=== PATIENT | female | born 1985 | race African-American/Black ===

== ENCOUNTER 2020-02-29 11:00 | Emergency (ER) | payer BC ==
[2020-02-29 11:17] VITALS: TEMP 99.2; BMI 29.9
[2020-02-29 11:51] LABS: BASO % 0.4 % (0-2.0); EOS % 1.5 % (0-4.5); HEMATOCRIT 35.1 % (32.4-45.2); HEMOGLOBIN 11.6 GM/dl (10.7-15.3); LYMPH % 39.2 % (8-40); MCH 23.3 pg (25.7-33.7); MCHC 33.1 g/dl (32.0-36.0); MEAN CELL VOLUME 70.3 fl (80-96); MEAN PLT VOLUME 8.2 fl (7.5-11.1); MONO % 10.2 % (3.8-10.2); NEUT % 48.7 % (42.8-82.8); PLATELET COUNT 419 K/MM3 (134-434); RDW 13.4 % (11.6-15.6); WHITE BLOOD COUNT 8.6 K/mm3 (4.0-10.8)
--- NOTE | 2020-02-29 11:57 | PDOC ---
History of Present Illness - General Chief Complaint: Nausea/Vomiting Stated Complaint: NAUSEA AND VOMITING Time Seen by Provider: 02/29/20 11:11 History Source: Patient Exam Limitations: No Limitations - History of Present Illness Initial Comments: 02/29/20 11:52 34 yo F diagnosed with goiter ~1 month ago p/w nausea and intermittent vomiting x5 days, ~2-3 episodes/day. Denies abdominal pain or changes in bowel habits. Denies cough, CP, SOB or urinary complaints. Reports heat intolerance and ~8 pound unintentional weight loss over the past few months. Was told to f/u with a n syrup blender but has not been able to make an appointment as of yet. Deneis fevers or sick contacts. Was seen by her PMD and urgent care and lab work was done which was notable for low TSH. No other complaints. Past History - Medical History Allergies/Adverse Reactions: Allergies Allergy/AdvReac Type Severity Reaction Status Date / Time Penicillins Allergy Intermediate Itching Verified 02/29/20 11:04 pepper (genus Capsicum) Allergy Intermediate Itching Verified 02/29/20 11:05 Home Medications: Ambulatory Orders Methimazole 10 mg PO BID #28 tablet 02/29/20 Propranolol HCl 10 mg PO BID #28 tablet 02/29/20 COPD: No Other medical history: GOITER,MIGRAINES,C7-T1 BULGING DISC - Psycho-Social/Smoking History Smoking History: Current every day smoker Number of Cigarettes Smoked Daily: 5 Information on smoking cessation initiated: No - Substance Abuse Hx (Audit-C & DAST Scrn) How often the patient has a drink containing alcohol: Never Score: In Men: 4 or > Positive; In Women: 3 or > Positive: 0 Screen Result (Pos requires Nsg. Audit-10AR): Negative In the last yr the pt used illegal drug/Rx for NonMed reason: No Score: Yes response is considered Positive: 0 Screen Result (Positive result requires Nsg. DAST-10): Negative Review of Systems - Review of Systems Able to Perform ROS?: Yes Comments:: 02/29/20 11:55 GENERAL/CONSTITUTIONAL: No fever or chills. No weakness. HEAD, EYES, EARS, NOSE AND THROAT: No change in vision. No ear pain or discharge. No sore throat. CARDIOVASCULAR: No chest pain or shortness of breath. RESPIRATORY: No cough, wheezing, or hemoptysis. GASTROINTESTINAL: + nausea and vomiting, No diarrhea or constipation. GENITOURINARY: No dysuria, frequency, or change in urination. MUSCULOSKELETAL: No joint or muscle swelling or pain. No neck or back pain. SKIN: No rash. NEUROLOGIC: +mild headache and dizziness, No loss of consciousness, or change in strength/sensation. ENDOCRINE: No increased thirst. +weight loss. HEMATOLOGIC/LYMPHATIC: No anemia, easy bleeding, or history of blood clots. ALLERGIC/IMMUNOLOGIC: No hives or skin allergy. *Physical Exam - Vital Signs Last Vital Signs Temp Pulse Resp BP Pulse Ox 99.2 F 126 H 20 160/99 98 02/29/20 11:03 02/29/20 11:03 02/29/20 11:03 02/29/20 11:03 02/29/20 11:03 - Physical Exam 02/29/20 11:56 GENERAL: Well appearing, in no acute distress HEAD: NCAT EYES: EOMI, sclera anicteric, conjunctiva clear, no nystagmus ENT: Auricles normal inspection, nares patent, oropharynx clear without exudates. MMM NECK: Normal ROM, supple LUNGS: CTAB. Good air entry. No wheezes, No Rhonchi and no crackles HEART: + s1 s2, tachy ABDOMEN: Soft, nontender, normoactive bowel sounds. No guarding, no rebound. No masses BACK: no midline or paraspinal tenderness. No CVA tenderness. EXTREMITIES: Warm and well perfused. No LE edema. FROM. No clubbing or cyanosis. No cords, erythema, or tenderness NEUROLOGICAL: Aox3, Speech fluent, face symmetric, tongue/uvula midline. Sensation grossly intact to light touch. Ambulatory with steady gait. Strength intact. No focal deficits. SKIN: Warm, dry, normal turgor, no rashes or lesions noted. ED Treatment Course - LABORATORY CBC & Chemistry Diagram: 02/29/20 11:46 02/29/20 12:08 Medical Decision Making - Medical Decision Making 02/29/20 11:57 34 yo F with nausea and intermittent vomiting, tachycardic on exam with mild hypertension and temp 99, concern for hyperthyroidism. Lower suspicion for as patient denies sexual activity with men. Possible mild viral syndrome however patient without any other infectious complaints, no sick contacts, no abd pain and otherwise feels well. Of note, patient has had negative covid swab. Patient provided EKG from her PMD done today shows sinus tach. Plan: -labs -reassess This clinical encounter is taking place during a federal and state health care emergency attributable to the novel Billy Virus pandemic. The [place] of the Department of Health and Human Services has declared, pursuant to the Public Health Service Act 319F-3 (42 U.S[place]C. 247d-6d), that a covered persons activities related to medical countermeasures against COVID-19 will be immune from liability under Federal and State law. 02/29/20 15:38 Labs consistent with hyperthyroidism. Spoke with Dr. Peterson, recommends propranolol 10mg BID and methimazole 10 mg BID and pt to call for f/u this week. Will d/c with return precautions, recommend endo f/u. Discharge - Discharge Information Problems reviewed: Yes Clinical Impression/Diagnosis: Hyperthyroidism Condition: Stable Disposition: HOME - Admission No - Additional Discharge Information Prescriptions: Methimazole 10 mg PO BID #28 tablet Propranolol HCl 10 mg PO BID #28 tablet - Follow up/Referral Referrals: Gurjit Peterson MD [Staff Physician] - - Patient Discharge Instructions Patient Printed Discharge Instructions: DI for Hyperthyroidism Additional Instructions: Your labs were consistent with hyperthyroidism. You should call Dr. Peterson at [phone] (office) or [phone] (cell) to schedule a follow up appointm ent. Return to the ED for new or worsening symptoms. - Post Discharge Activity Work/Back to School Note: Back to Work
[2020-02-29 12:16] LABS: ALBUMIN 3.5 g/dl (3.4-5.0); BILIRUBIN,TOTAL 0.4 mg/dl (0.2-1); CALCIUM 9.3 mg/dl (8.5-10); CREATININE 0.4 mg/dl (0.55-1.3); POTASSIUM 3.6 mmol/L (3.5-5.1)
[2020-02-29 13:31] VITALS: BP 131/86; PULSE 113
== END 2020-02-29 16:05 | disposition home or self-care (01) ==
LOC: FER 11:00
DX: E05.90 Thyrotoxicosis, unspecified without thyrotoxic crisis or storm (principal)
CPT/HCPCS: 36415; 80053; 84439; 84443; 85025; 99283-25

== ENCOUNTER 2020-03-19 14:05 | Emergency (ER) | payer BC ==
[2020-03-19 14:11] VITALS: TEMP 98.2; BMI 29.9
[2020-03-19] MEDS ORDERED: ONDANSETRON 4 MG/2 ML VIAL IVPUSH ONE (14:18)
[2020-03-19] MEDS ORDERED: ONDANSETRON 4 MG/2 ML VIAL ONE (14:29)
[2020-03-19 15:11] LABS: HEMATOCRIT 39.6 % (32.4-45.2); HEMOGLOBIN 12.8 GM/dl (10.7-15.3); MCH 23.3 pg (25.7-33.7); MCHC 32.4 g/dl (32.0-36.0); MEAN CELL VOLUME 71.9 fl (80-96); MEAN PLT VOLUME 9.2 fl (7.5-11.1); PLATELET COUNT 338 K/MM3 (134-434); RDW 13.4 % (11.6-15.6); WHITE BLOOD COUNT 6.7 K/mm3 (4.0-10.8)
[2020-03-19 15:12] LABS: ALBUMIN 3.3 g/dl (3.4-5.0); BILIRUBIN,TOTAL 0.5 mg/dl (0.2-1); CALCIUM 9.5 mg/dl (8.5-10); CREATININE 0.6 mg/dl (0.55-1.3); POTASSIUM 3.6 mmol/L (3.5-5.1); TOT PROT 7.4 g/dl (6.4-8.2)
--- NOTE | 2020-03-19 15:12 | PDOC ---
Documentation entered by Nicho Gan SCRIBE, acting as scribe for Chelsea Austin MD. Chelsea Austin MD: This documentation has been prepared by the yosvanyibeMalik Alexis, SCRIBE, under my direction and personally reviewed by me in its entirety. I confirm that the documentation accurately reflects all work, treatment, procedures, and medical decision making performed by me. History of Present Illness - General Chief Complaint: Nausea/Vomiting Stated Complaint: NAUSEA, VOMITING Time Seen by Provider: 03/19/20 14:08 History Source: Patient Exam Limitations: No Limitations - History of Present Illness Initial Comments: 03/19/20 14:47 The patient is a 34 year old female with a significant past medical history of goiter, migraines, and C7-T1 bulging disc who presents to the emergency department for evaluation of nausea and vomiting that began this week and worsened two days ago. She endorses night sweats, decreased appetite, weight loss, and a dry cough. She reports when her blood was drawn on , labs showed an elevated T4. The patient last came to the ED 02/29/2020 for nausea and intermittent vomiting secondary to hyperthyroidism for which she received propranolol and methimazole. The patient denies chest/abdominal/back pain and shortness of breath. Denies fever, chills, or any symptoms. Denies any other symptoms. Allergies: penicillins, pepper (genus Capsicum) Social Hx: The patient reports she currently smokes 2 cigarettes per day. PCP: Dr. Peterson Past History - Medical History Allergies/Adverse Reactions: Allergies Allergy/AdvReac Type Severity Reaction Status Date / Time Penicillins Allergy Intermediate Itching Verified 02/29/20 11:04 pepper (genus Capsicum) Allergy Intermediate Itching Verified 02/29/20 11:05 Home Medications: Ambulatory Orders Methimazole 10 mg PO BID #28 tablet 02/29/20 Propranolol HCl 10 mg PO BID #28 tablet 02/29/20 Methimazole 20 mg PO TID 7 Days #42 tablet 03/19/20 COPD: No Thyroid Disease: Yes - Reproductive History Is Patient Now?: No - Psycho-Social/Smoking History Smoking History: Current some day smoker Have you smoked in the past 12 months: Yes Number of Cigarettes Smoked Daily: 2 Information on smoking cessation initiated: No - Substance Abuse Hx (Audit-C & DAST Scrn) How often the patient has a drink containing alcohol: Never Score: In Men: 4 or > Positive; In Women: 3 or > Positive: 0 Screen Result (Pos requires Nsg. Audit-10AR): Negative In the last yr the pt used illegal drug/Rx for NonMed reason: No Score: Yes response is considered Positive: 0 Screen Result (Positive result requires Nsg. DAST-10): Negative Review of Systems - Review of Systems Comments:: 03/19/20 14:57 GENERAL/CONSTITUTIONAL: +night sweats. No fever, chills, or weakness. HEAD, EYES, EARS, NOSE AND THROAT: No change in vision. No ear pain or discharge. No sore throat. CARDIOVASCULAR: No chest pain or shortness of breath. RESPIRATORY: + dry cough No wheezing, or hemoptysis. GASTROINTESTINAL: +nausea, vomiting No diarrhea or constipation. GENITOURINARY: No dysuria, frequency, or change in urination. MUSCULOSKELETAL: No joint or muscle swelling or pain. No neck or back pain. SKIN: No rash NEUROLOGIC: No headache, vertigo, loss of consciousness, or change in strength/sensation. ENDOCRINE: +weight loss, decreased appetite No increased thirst. HEMATOLOGIC/LYMPHATIC: No anemia, easy bleeding, or history of blood clots. ALLERGIC/IMMUNOLOGIC: No hives or skin allergy. *Physical Exam - Vital Signs Last Vital Signs Temp Pulse Resp BP Pulse Ox 98.2 F 103 H 18 133/106 H 98 03/19/20 14:05 03/19/20 14:05 03/19/20 14:05 03/19/20 14:05 03/19/20 14:05 - Physical Exam 03/19/20 14:20 GENERAL: Awake, alert, and fully oriented, in no acute distress HEAD: No signs of trauma EYES: PERRLA, EOMI, sclera anicteric, conjunctiva clear ENT: Auricles normal inspection, hearing grossly normal, nares patent, oropharynx clear without exudates. Moist mucosa NECK: Normal ROM, supple, no lymphadenopathy, JVD, or masses LUNGS: Breath sounds equal, clear to auscultation bilaterally. No wheezes, and no crackles HEART: slightly tachycardic, normal S1 and S2 ABDOMEN: Soft, nontender, normoactive bowel sounds. No guarding, no rebound. No masses EXTREMITIES: Normal range of motion, no edema. No clubbing or cyanosis. No cords, erythema, or tenderness NEUROLOGICAL: Cranial nerves II through XII grossly intact. Normal speech, normal gait SKIN: Warm, Dry, normal turgor, no rashes or lesions noted. ED Treatment Course - LABORATORY CBC & Chemistry Diagram: 03/19/20 14:35 03/19/20 14:35 Medical Decision Making - Medical Decision Making 03/19/20 15:09 34 yo F here with n/v and recent diagnosis of hyperthyroidism, concern for symptomatic hyperthyroidism. Plan: -labs -zofran -IVF -endo consult (pt spoke with her piercing artist who recommended she come to the ED) -reassess This clinical encounter is taking place during a federal and state health care emergency attributable to the novel Billy Virus pandemic. The [place] of the Department of Health and Human Services has declared, pursuant to the Public Health Service Act 319F-3 (42 U.S.C. 247d-6d), that a covered persons activities related to medical countermeasures against COVID-19 will be immune from liability under Federal and State law. 03/19/20 15:[address] Peterson, pts piercing artist. As patient with unremarkable CBC and HD stable and afebrile in ED without any use of antipyretic patient can increase methimazole to 20mg TID and he will call patient to f/u on today's TSH and T4. Plan discussed with patient who verbalized understanding and will f/u with her piercing artist. Will d/c, return precautions given. Discharge - Discharge Information Problems reviewed: Yes Clinical Impression/Diagnosis: Hyperthyroidism Condition: Stable Disposition: HOME - Admission No - Additional Discharge Information Prescriptions: Methimazole 20 mg PO TID 7 Days #42 tablet - Follow up/Referral Referrals: Gurjit Peterson MD [Primary Care Provider] - - Patient Discharge Instructions Patient Printed Discharge Instructions: DI for Vomiting -- Adult, DI for Nausea -- Adult Additional Instructions: Your methimazole was increased to 20mg three times a day. You should follow up with your piercing artist. Return to the ED for new or worsening symptoms. - Post Discharge Activity
[2020-03-19] MEDS ORDERED: SODIUM CHLORIDE 1,000 ML IV STA (15:14)
[2020-03-19 15:20] LABS: ADD RBC MORPHOLOGY YES
[2020-03-19 15:46] VITALS: BP 120/71; PULSE 90
[2020-03-19 16:50] LABS: ANISOCYTOSIS 1+
[2020-03-19 16:51] LABS: PLATELET ESTIMATE ADEQUATE
== END 2020-03-19 15:45 | disposition home or self-care (01) ==
LOC: FER 14:05
PROC: 3E033GC Introduction of Other Therapeutic Substance into Peripheral Vein, Percutaneous Approach (ICD-10-PCS; principal; 2020-03-19)
PROC: 3E0337Z Introduction of Electrolytic and Water Balance Substance into Peripheral Vein, Percutaneous Approach (ICD-10-PCS; 2020-03-19)
DX: E05.90 Thyrotoxicosis, unspecified without thyrotoxic crisis or storm (principal)
CPT/HCPCS: 36415; 80053; 84439; 84443; 84703; 85025; 99284-25; U0003

== ENCOUNTER 2020-03-26 21:56 | Emergency (ER) | payer BC ==
[2020-03-26 22:07] VITALS: BP 155/92; TEMP 98.5; BMI 29.9
[2020-03-26] MEDS ORDERED: diphenhydrAMINE HCL 50 MG CAPSULE ONE (22:11)
[2020-03-26] MEDS ORDERED: predniSONE 20 MG TABLET (UD) PO ONE (22:11)
[2020-03-26] MEDS ORDERED: predniSONE 20 MG TABLET (UD) ONE (22:11)
[2020-03-26] MEDS ORDERED: diphenhydrAMINE HCL 50 MG CAPSULE PO ONE (22:12)
--- NOTE | 2020-03-26 22:12 | PDOC ---
History of Present Illness - General Chief Complaint: Itching Stated Complaint: ITCHING Time Seen by Provider: 03/26/20 22:10 History Source: Patient Exam Limitations: No Limitations - History of Present Illness Initial Comments: 03/26/20 22:11 This is a 34-year-old female who comes in complaining of itching x1 day. Patient started a Medrol Dosepak and took 20 mg of prednisone without relief. Patient otherwise has taken some Elina without relief as well. Patient is not taking any Benadryl. Patient denies any other complaints other than the itching. Allergies: as per nursing notes Past Medical History: none Social history: Lives with family. No smoking. No alcohol. No illicit drugs. Surgical history: None General: No fevers or chills, no weakness, no weight loss HEENT: No change in vision. No sore throat,. No ear pain CardioVascular: no chest discomfort. No shortness of breath Respiratory:No cough, or wheezing. Gastrointestinal: no nausea, vomiting, diarrhea or constipation, No rectal bleeding Genitourinary: No dysuria, hematuria, or frequency Musculoskeletal: No joint or muscle pain or swelling Neurologic: No headache, vertigo, dizziness or loss of consciousness Psychiatric: nor depression Skin: No rashes or easy bruising Endocrine: no increased thirst or abnormal weight change Allergic: no skin or latex allergy All other systems reviewed and normal GENERAL: The patient is awake, alert, and fully oriented, in no acute distress. HEENT:Head is normal with no signs of trauma. Eyes: Pupils equal, round and reactive to light, Ears, and Throat are normal. Neck is supple. No Lymphadenopathy. EXTREMITIES:atraumatic, Normal range of motion, no edema. NEUROLOGICAL: Normal speech, normal gait. PSYCH: Normal mood, normal affect. SKIN: Warm, Dry, normal turgor, no rashes or lesions noted. Past History - Medical History Allergies/Adverse Reactions: Allergies Allergy/AdvReac Type Severity Reaction Status Date / Time Penicillins Allergy Intermediate Itching Verified 02/29/20 11:04 pepper (genus Capsicum) Allergy Intermediate Itching Verified 02/29/20 11:05 Home Medications: Ambulatory Orders Methimazole 20 mg PO TID 7 Days #42 tablet 03/19/20 Fexofenadine HCl 180 mg PO BID PRN 03/26/20 Prednisone 5 mg PO ASDIR 03/26/20 Propranolol HCl 20 mg PO BID 03/26/20 COPD: No Thyroid Disease: Yes - Reproductive History Is Patient Now?: No - Psycho-Social/Smoking History Smoking History: Never smoked Have you smoked in the past 12 months: Yes Number of Cigarettes Smoked Daily: 5 - Substance Abuse Hx (Audit-C & DAST Scrn) How often the patient has a drink containing alcohol: Never Score: In Men: 4 or > Positive; In Women: 3 or > Positive: 0 Screen Result (Pos requires Nsg. Audit-10AR): Negative In the last yr the pt used illegal drug/Rx for NonMed reason: No Score: Yes response is considered Positive: 0 Screen Result (Positive result requires Nsg. DAST-10): Negative *Physical Exam - Vital Signs Last Vital Signs Temp Pulse Resp BP Pulse Ox 98.5 F 138 H 18 155/92 98 03/26/20 21:57 03/26/20 21:57 03/26/20 21:57 03/26/20 21:57 03/26/20 21:57 Discharge - Discharge Information Problems reviewed: Yes Clinical Impression/Diagnosis: Urticaria Condition: Good Disposition: HOME - Admission No - Follow up/Referral Referrals: Gurjit Peterson MD [Primary Care Provider] - - Patient Discharge Instructions Additional Instructions: Take 60 mg of prednisone in the morning. I sent a prescription to your pharmacy. Then restart the Medrol Dosepak on Thursday. You can continue Benadryl 1 tablet every 4 hours if needed for itching. Call your leather tanner in the morning and follow-up. - Post Discharge Activity
[2020-03-26 22:55] VITALS: PULSE 111
== END 2020-03-26 22:55 | disposition home or self-care (01) ==
LOC: FER 21:56
DX: L50.0 Allergic urticaria (principal)
CPT/HCPCS: 99283-25